=== PATIENT | female | born 1935 | race Caucasian/White ===

== ENCOUNTER 2016-12-31 14:12 | Inpatient (IN) | payer MEDICARE ==
[2016-12-31] VITALS (7 sets, daily range): BP systolic 117–144; BP diastolic 58–89; PULSE 76–89; RESP 16–18; TEMP 98.3–99.5; O2SAT 98–100
[~2016-12-31] VITALS: Ht 157.5 cm; Wt 65.0 kg
[2016-12-31] MEDS ORDERED: TETANUS/DIPHTHERIA TOXOID ADULT 0.5 ML VIAL IM ONE (14:45)
--- NOTE | 2016-12-31 15:05 | PD ---
HPI Chief Complaint: Injury Time Seen by Provider: 14:44 Travel History International Travel<30 days: No Contact w/Intl Traveler<30days: No Traveled to known affect area: No History of Present Illness HPI This is a 81-year-old female with history of dementia,, who presents with left shoulder, humerus, elbow, hip and femur pain after mechanical fall. The patient was apparently walking her dog and tripped over her dog. There is no reported loss of consciousness. There is no neck pain. The patient is a poor historian secondary to her dementia history. There is no chest or abdominal pain. There is no neck pain. PFSH Past Medical History Medical History: Unable to Obtain High Cholesterol: Yes Dementia: Yes Tetanus Vaccination: Unknown Influenza Vaccination: No ?: Not Past Surgical History Hysterectomy: Yes Social History Alcohol Use: No Tobacco Use: No Substance Use: No Allergies-Medications (Allergen,Severity, Reaction): Coded Allergies: No Known Allergies (Unverified , 12/31/16) Reported Meds & Prescriptions Reported Meds & Active Scripts Active Reported Pravastatin 10 Mg Tab 10 Mg PO DAILY Namenda (Memantine) 5 Mg Tab 5 Mg PO BID Review of Systems ROS Limitations: Poor Historian HENT: No: Headaches, Neck Pain Cardiovascular: No: Chest Pain or Discomfort (secondary to dementia.), Palpitations Gastrointestinal: No: Nausea, Vomiting, Abdominal Pain Genitourinary: No: Incontinence Musculoskeletal: Positive: Limited ROM (secondary to pain in the lower extremity of the left leg), Pain (left shoulder, humerus, elbow, hip, femur pain ) Skin: Positive Other (abrasion to the left elbow.) Neurologic: Positive: Other (history of dementia.), No: Syncope, Headache Physical Exam Narrative GENERAL: Elderly [id number] female in no acute respiratory distress. SKIN: Focused skin assessment warm/dry. HEAD: Atraumatic. Normocephalic. EYES: No scleral icterus. No injection or drainage. ENT: No nasal bleeding or discharge. Mucous membranes pink and moist. NECK: Trachea midline. No posterior spinous process tenderness on her cervical spine. She had full range of motion. No pain elicited on ranging of her neck. CARDIOVASCULAR: Regular rate and rhythm. No murmur appreciated. RESPIRATORY: No accessory muscle use. Clear to auscultation. Breath sounds equal bilaterally. GASTROINTESTINAL: Abdomen soft, non-tender, nondistended. MUSCULOSKELETAL: No obvious deformities. Subjective pain to her left shoulder and left humerus. There is an abrasion to her left elbow. There is no obvious deformity. Patient also has tenderness to her left lateral trochanter of her hip. She has no knee pain or tibial pain. She does have pain in her proximal femur. No obvious deformity noted. Right upper and lower extremity are without pain or deformities. NEUROLOGICAL: Awake and confused. No obvious cranial nerve deficits. Motor grossly within normal limits. Normal speech. Data Data Last Documented VS Vital Signs Date Time Temp Pulse Resp B/P (MAP) Pulse Ox O2 Delivery O2 Flow Rate FiO2 12/31/16 17:14 98 Room Air 12/31/16 16:15 76 17 12/31/16 14:22 2.00 12/31/16:17 98.3 Orders Orders Elbow, Limited (Ap&Lat) (12/31/16 14:44) Femur (Ap & Lat/2vws) (12/31/16 14:44) Hip, Uni(Ap&Lat) W Ap Pelvis (12/31/16 14:44) Humerus (Min 2vws) (12/31/16 14:44) Shoulder, Limited(2vws) (12/31/16 14:44) Tetanus/Diphtheria Tox Adult (Tetanus/Di (12/31/16 14:45) Electrocardiogram (12/31/16 14:28) Morphine Inj (Morphine Inj) (12/31/16 16:45) Ondansetron Inj (Zofran Inj) (12/31/16 16:45) Electrocardiogram (12/31/16 16:44) Complete Blood Count With Diff (12/31/16 16:44) Comprehensive Metabolic Panel (12/31/16 16:44) Prothrombin Time / Inr (Pt) (12/31/16 16:44) Act Partial Throm Time (Ptt) (12/31/16 16:44) Chest, Single Ap (12/31/16 16:44) Iv Access Insert/Monitor (12/31/16 16:44) Ecg Monitoring (12/31/16 16:44) Oximetry (12/31/16 16:44) Type And Screen (12/31/16 16:44) Admit To Inpatient (12/31/16 ) Vital Signs (Adult) Q4H (12/31/16 17:28) Activity Oob With Assistance (12/31/16 17:28) Intake + Output RENY.QSHIFT (12/31/16 17:28) Diet Heart Healthy (12/31/16 Dinner) Sodium Chloride 0.9% Flush (Ns Flush) (12/31/16 17:30) Sodium Chloride 0.9% Flush (Ns Flush) (12/31/16 21:00) Acetaminophen (Tylenol) (12/31/16 17:30) Ondansetron Inj (Zofran Inj) (12/31/16 17:30) Basic Metabolic Panel (Bmp) (01/01/17 06:00) Complete Blood Count With Diff (01/01/17 06:00) Resp Oxygen Jaime C Titrat 1-4 L (12/31/16 ) Pt Request For Service (12/31/16 17:28) Ot Request For Service (12/31/16 17:28) Scd Bilateral/Knee High RENY.BID (12/31/16 17:28) Naloxone Inj (Narcan Inj) (12/31/16 17:30) Docusate Sodium-Senna (Katie-Colace) (12/31/16 21:00) Magnesium Hydroxide Liq (Milk Of Magnesi (12/31/16 17:30) Sennosides (Senokot) (12/31/16 17:30) Bisacodyl Supp (Dulcolax Supp) (12/31/16 17:30) Inpatient Certification (12/31/16 ) Scd&Teds Bilateral/Knee High RENY.QSHIFT (12/31/16 17:28) Diet Npo (01/01/17 Breakfast) Consult Orthopedic (12/31/16 ) Admit Order (Ed Use Only) (12/31/16 17:31) Memantine (Namenda) (12/31/16 21:00) Pravastatin (Pravachol) (01/01/17 09:00) [employer] Request For Service (12/31/16 17:33) Labs Laboratory Tests Test 12/31/16 17:21 White Blood Count 10.7 TH/MM3 Red Blood Count 4.07 MIL/MM3 Hemoglobin 12.0 GM/DL Hematocrit 36.4 % Mean Corpuscular Volume 89.4 FL Mean Corpuscular Hemoglobin 29.5 PG Mean Corpuscular Hemoglobin Concent 33.1 % Red Cell Distribution Width 13.3 % Platelet Count 235 TH/MM3 Mean Platelet Volume 9.2 FL Neutrophils (%) (Auto) 49.6 % Lymphocytes (%) (Auto) 40.4 % Monocytes (%) (Auto) 8.2 % Eosinophils (%) (Auto) 1.1 % Basophils (%) (Auto) 0.7 % Neutrophils # (Auto) 5.3 TH/MM3 Lymphocytes # (Auto) 4.3 TH/MM3 Monocytes # (Auto) 0.9 TH/MM3 Eosinophils # (Auto) 0.1 TH/MM3 Basophils # (Auto) 0.1 TH/MM3 CBC Comment DIFF FINAL Differential Comment MDM Medical Decision Making Medical Screen Exam Complete: Yes Emergency Medical Condition: Yes Differential Diagnosis Left hip versus pelvis fracture versus femur fracture versus left shoulder versus left elbow versus left humerus fracture Narrative Course This is a 81-year-old female who presents after mechanical fall with left shoulder and left hip pain. Patient has a left proximal humerus fracture as well as a left femoral neck fracture. The patient has no other obvious injuries. The patient has been discussed with Dr. Nitin Solares, [facility], who will admit the patient to his service. Case was discussed with the circulating nurse in the OR for Dr. Chaudhry who requested admit to medicine and consult to him. The patient was placed in a coaptation splint and Jaime's traction for the left lower extremity. Diagnosis Primary Impression: Closed fracture of left proximal humerus Additional Impressions: Fracture of neck of left femur Abrasion of left elbow mechanical fall History of dementia Admitting Information Admitting Physician Requests: Admit Ruddy Welch MD Dec 31, 2016 15:05
[2016-12-31] MEDS ORDERED: NAME5TAB2 PO (15:41)
[2016-12-31] MEDS ORDERED: PRAV10TA PO (15:41)
--- NOTE | 2016-12-31 16:02 | RADRPT ---
EXAM DATE/TIME: 12/31/2016 15:10 [facility] COMPARISON: No previous studies available for comparison. INDICATIONS : Fall, complains of left shoulder pain. MEDICAL HISTORY : None. SURGICAL HISTORY : None. ENCOUNTER: Initial ACUITY: 1 day PAIN SCORE: 10/10 LOCATION: Left elbow FINDINGS: No definite fractures, or dislocations are identified. No definite lytic or sclerotic lesion is seen . The joint spaces are well maintained. CONCLUSION: Unremarkable study. Emmy Ordoñez MD on December 31, 2016 at 15:59 Board Certified Radiologist. This report was verified electronically.
[2016-12-31] MEDS ORDERED: MORPHINE SULFATE 4 MG/ML INJ IV ONE (16:45)
[2016-12-31] MEDS ORDERED: ONDANSETRON HCL 4 MG/2 ML VIAL IVP ONE (16:45)
--- NOTE | 2016-12-31 16:59 | RADRPT ---
EXAM DATE/TIME: 12/31/2016 15:10 [facility] COMPARISON: No previous studies available for comparison. INDICATIONS : Fall, complains of left hip pain. MEDICAL HISTORY : None. SURGICAL HISTORY : None. ENCOUNTER: Initial ACUITY: 1 day PAIN SCORE: 10/10 LOCATION: Left Hip FINDINGS: There is a complete left femoral neck fracture. CONCLUSION: Left femoral neck fracture. Emmy Ordoñez MD on December 31, 2016 at 16:57 Board Certified Radiologist. This report was verified electronically.
--- NOTE | 2016-12-31 17:00 | RADRPT ---
EXAM DATE/TIME: 12/31/2016 15:12 [facility] COMPARISON: No previous studies available for comparison. INDICATIONS : Fall, complains of left humerus pain. MEDICAL HISTORY : None. SURGICAL HISTORY : None. ENCOUNTER: Initial ACUITY: 1 day PAIN SCORE: 10/10 LOCATION: Left humerus FINDINGS: There is a complete fracture of the proximal humerus underneath the surgical neck and the humeral hea d is rotated. CONCLUSION: Left proximal humeral fracture. Emmy Ordoñez MD on December 31, 2016 at 16:58 Board Certified Radiologist. This report was verified electronically.
--- NOTE | 2016-12-31 17:01 | RADRPT ---
EXAM DATE/TIME: 12/31/2016 15:17 [facility] COMPARISON: No previous studies available for comparison. INDICATIONS : Fall, complains of left shoulder pain. MEDICAL HISTORY : None. SURGICAL HISTORY : None. ENCOUNTER: Initial ACUITY: 1 day PAIN SCORE: 10/10 LOCATION: Left shoulder FINDINGS: There is a complete fracture of the proximal humerus underneath the surgical neck with impaction of t he metaphysis into the humeral head which is rotated. There is no dislocation. CONCLUSION: Left proximal humeral fracture. Emmy Ordoñez MD on December 31, 2016 at 16:59 Board Certified Radiologist. This report was verified electronically.
--- NOTE | 2016-12-31 17:02 | RADRPT ---
EXAM DATE/TIME: 12/31/2016 15:19 [facility] COMPARISON: No previous studies available for comparison. INDICATIONS : Fall, left femur pain. MEDICAL HISTORY : None. SURGICAL HISTORY : None. ENCOUNTER: Initial ACUITY: 1 day PAIN SCORE: 10/10 LOCATION: Left femur FINDINGS: There is a complete femoral neck fracture. CONCLUSION: Femoral neck fracture. Emmy Ordoñez MD on December 31, 2016 at 16:59 Board Certified Radiologist. This report was verified electronically.
--- NOTE | 2016-12-31 17:10 | RADRPT ---
EXAM DATE/TIME: 12/31/2016 16:51 [facility] COMPARISON: No previous studies available for comparison. INDICATIONS : Pre op. MEDICAL HISTORY : None. SURGICAL HISTORY : None. ENCOUNTER: Initial ACUITY: 1 day PAIN SCORE: 0/10 LOCATION: Bilateral chest FINDINGS: There is small focal opacity overlying the left lung base. Lung nodule or small focus of infiltrate i s not excluded. Right lung is grossly clear. No effusion is suspected. Cardiomediastinal contours are satisfactory for technique and projection. CONCLUSION: Small density overlying the left lung base. Followup versus further evaluation with CT chest recommen ded. Marcos Gage MD on December 31, 2016 at 17:07 Board Certified Radiologist. This report was verified electronically.
[2016-12-31] MEDS ORDERED: NALOXONE HCL 0.4 MG/ML AMP IV PRN (17:30)
[2016-12-31] MEDS ORDERED: BISACODYL 10 MG SUPP RECTAL PRN (17:30)
[2016-12-31] MEDS ORDERED: SODIUM CHLORIDE 0.9% FLUSH 10 ML FLUSH IV FLUSH PRN (17:30)
[2016-12-31] MEDS ORDERED: ONDANSETRON HCL 4 MG/2 ML VIAL IVP PRN (17:30)
[2016-12-31] MEDS ORDERED: ACETAMINOPHEN 325 MG TAB PO PRN (17:30)
[2016-12-31 17:33] LABS: AUTOMATED NEUTROPHIL # 5.3 TH/MM3 (1.8-7.7); BASOPHIL # 0.1 TH/MM3 (0-0.2); BASOPHIL % 0.7 % (0.0-2.0); EOSINOPHIL # 0.1 TH/MM3 (0-0.4); EOSINOPHIL % 1.1 % (0.0-4.0); HEMATOCRIT 36.4 % (35.0-46.0); HEMO FLAGS DIFF FINAL; LYMPH % 40.4 % (9.0-44.0); LYMPHOCYTE # 4.3 TH/MM3 (1.0-4.8); MEAN CELL VOLUME 89.4 FL (80.0-100.0); MEAN CORPUSCULAR HEMOGLOBIN 29.5 PG (27.0-34.0); MEAN CORPUSCULAR HGB CONC 33.1 % (32.0-36.0); MONO % 8.2 % (0.0-8.0); NEUT % 49.6 % (16.0-70.0); PLATELET COUNT 235 TH/MM3 (150-450); RED BLOOD COUNT 4.07 MIL/MM3 (4.00-5.30); RED CELL DISTRIBUTION WIDTH 13.3 % (11.6-17.2); WHITE BLOOD COUNT 10.7 TH/MM3 (4.0-11.0)
[2016-12-31 17:40] LABS: APTT (PATIENT) 25.5 SEC (24.3-30.1); PROTHROMBIN TIME - PATIENT 10.5 SEC (9.8-11.6)
--- NOTE | 2016-12-31 18:02 | HHI.HP ---
HPI Service [facility] Primary Care Physician Ang Mesa M.D. Admission Diagnosis left hip fracture, left proximal humerous fracture, pulmonary nodule Diagnoses: (1) Closed fracture of left proximal humerus (2) Fracture of neck of left femur (3) History of dementia Chief Complaint: Fall Travel History International Travel<30 Days: No Contact w/Intl Traveler <30 Da: No Traveled to Known Affected Are: No History of Present Illness Mrs. Cotton is an 81-year-old female patient with a known medical history of dementia and hyperlipidemia who presented to the ED after a fall. Patient seen in the ED with at bedside. She states that patient tripped over her dog this afternoon, fell to the ground and sustained a left femoral neck fracture and a left proximal humeral fracture. Patient denies any loss of consciousness or hitting her head. She is a relatively healthy patient with dementia x 7 years , lives at home with her , able to perform all ADLs per self and before this incident independent in ambulation. Denies any recent fever, chills, cough , headache, shortness of breath, loss of appetite, loss of weight, abdominal pain, nausea, vomiting, diarrhea or dysuria. Review of Systems Musculoskeletal: COMPLAINS OF: Joint pain (left shoulder and hip pain) Except as stated in HPI: all other systems reviewed are Neg Past Family Social History Past Medical History History of dementia x 7 years Hyperlipidemia Past Surgical History Hysterectomy Reported Medications Reported Meds & Active Scripts Active Reported Pravastatin 10 Mg Tab 10 Mg PO DAILY Namenda (Memantine) 5 Mg Tab 5 Mg PO BID Allergies: Coded Allergies: No Known Allergies (Unverified , 12/31/16) Active Ordered Medications Current Medications Medications (Trade) Dose Ordered Sig/Yasmin Route Start Time Stop Time Status Last Admin (NS Flush) 2 ml UNSCH PRN IV FLUSH 12/31/16 17:30 (NS Flush) 2 ml BID IV FLUSH 12/31/16 21:00 (Tylenol) 650 mg Q4H PRN PO 12/31/16 17:30 (Zofran Inj) 4 mg Q6H PRN IVP 12/31/16 17:30 (Narcan Inj) 0.4 mg UNSCH PRN IV 12/31/16 17:30 (Katie-Colace) 1 tab BID PO 12/31/16 21:00 (Milk Of Magnesia Liq) 30 ml Q12H PRN PO 12/31/16 17:30 (Senokot) 17.2 mg Q12H PRN PO 12/31/16 17:30 (Dulcolax Supp) 10 mg DAILY PRN RECTAL 12/31/16 17:30 (Namenda) 5 mg BID PO 12/31/16 21:00 (Pravachol) 10 mg DAILY PO 01/01/17 09:00 Family History Denies any significant family medical history including cardiovascular disease, cancer or lung disease. Social History Denies any previous or current tobacco use. Denies any alcohol abuse. Denies any illicit drug use. for over 64 years. Physical Exam Vital Signs Vital Signs Date Time Temp Pulse Resp B/P (MAP) Pulse Ox O2 Delivery O2 Flow Rate FiO2 12/31/16 17:14 98 Room Air 12/31/16 16:15 76 17 134/75 (94) 98 Room Air 12/31/16 16:07 77 17 123/89 (100) 98 Room Air 12/31/16 14:22 Nasal Cannula 2.00 12/31/16 14:17 98.3 76 16 140/66 (90) 100 Physical Exam GENERAL: This is a well-nourished, well-developed female patient lying in bed with apparent pain to her left shoulder and hip SKIN: No rashes, ecchymoses or lesions. Warm and dry. HEAD: Atraumatic. Normocephalic. Pupils equal round and reactive. Extraocular motions intact. No scleral icterus. No injection or drainage. Nose without bleeding. Airway patent. NECK: Trachea midline. No JVD or lymphadenopathy. Supple, nontender, no meningeal signs. CARDIOVASCULAR: Regular rate and rhythm without murmurs, gallops, or rubs. S1 and S2 present, no S3 or S4. RESPIRATORY: Clear to auscultation. Breath sounds equal bilaterally. No wheezes , rales, or rhonchi. GASTROINTESTINAL: Abdomen soft, non-tender, nondistended. No guarding. Bowel sounds present x 4 q. MUSCULOSKELETAL: Extremities without clubbing, cyanosis, or edema. No joint tenderness, effusion, or edema noted. NEUROLOGICAL: Awake and alert, pleasant with apparent confusion. Cranial nerves II through XII intact. Limited range of motion to left humerus and left hip. Five out of 5 muscle strength in all muscle groups. Normal speech. Denies any paresthesia or numbness to extremities. Laboratory Laboratory Tests Test 12/31/16 17:21 White Blood Count 10.7 Red Blood Count 4.07 Hemoglobin 12.0 Hematocrit 36.4 Mean Corpuscular Volume 89.4 Mean Corpuscular Hemoglobin 29.5 Mean Corpuscular Hemoglobin Concent 33.1 Red Cell Distribution Width 13.3 Platelet Count 235 Mean Platelet Volume 9.2 Neutrophils (%) (Auto) 49.6 Lymphocytes (%) (Auto) 40.4 Monocytes (%) (Auto) 8.2 Eosinophils (%) (Auto) 1.1 Basophils (%) (Auto) 0.7 Neutrophils # (Auto) 5.3 Lymphocytes # (Auto) 4.3 Monocytes # (Auto) 0.9 Eosinophils # (Auto) 0.1 Basophils # (Auto) 0.1 CBC Comment DIFF FINAL Differential Comment Prothrombin Time 10.5 Prothromb Time International Ratio 1.0 Activated Partial Thromboplast Time 25.5 Result Diagram: 12/31/16 1721 Imaging Last Impressions Chest X-Ray 12/31/16 1644 Signed Impressions: Service Date/Time: Saturday, December 31, 2016 16:51 - CONCLUSION: Small density overlying the left lung base. Followup versus further evaluation with CT chest recommended. Marcos Gage MD Shoulder X-Ray 12/31/161443 Signed Impressions: Service Date/Time: Saturday, December 31, 2016 15:17 - CONCLUSION: Left proximal humeral fracture. Emmy Ordoñez MD Humerus X-Ray 12/31/161443 Signed Impressions: Service Date/Time: Saturday, December 31, 2016 15:12 - CONCLUSION: Left proximal humeral fracture. Emmy Ordoñez MD Hip and Pelvis X-Ray 12/31/161443 Signed Impressions: Service Date/Time: Saturday, December 31, 2016 15:10 - CONCLUSION: Left femoral neck fracture. Emmy Ordoñez MD Femur X-Ray 12/31/161443 Signed Impressions: Service Date/Time: Saturday, December 31, 2016 15:19 - CONCLUSION: Femoral neck fracture. Emmy Ordoñez MD Elbow X-Ray 12/31/16 1444 Signed Impressions: Service Date/Time: Saturday, December 31, 2016 15:10 - CONCLUSION: Unremarkable study. MD Nasir Bob VTE Risk Assessment Nasir VTE Risk Assessment: Mod/High Risk (score >= 2) Caprini Risk Assessment Model Point Value = 1 Point Value = 2 Point Value = 3 Point Value = 5 Age 41-60 Minor surgery BMI > 25 kg/m2 Swollen legs Varicose veins or History of unexplained or recurrent spontaneous Oral contraceptives or hormone replacement Sepsis (< 1 month) Serious lung disease, including pneumonia (< 1 month) Abnormal pulmonary function Acute myocardial infarction Congestive heart failure (< 1 month) History of inflammatory bowel disease Medical patient at bed rest Age 61-74 Arthroscopic surgery Major open surgery (> 45 min) Laparoscopic surgery (> 45 min) Malignancy Confined to bed (> 72 hours) Immobilizing plaster cast Central venous access Age >= 75 History of VTE Family history of VTE Factor V Leiden Prothrombin [id number] Lupus anticoagulant Anticardiolipin antibodies Elevated serum homocysteine Heparin-induced thrombocytopenia Other congenital or acquired thrombophilia Stroke (< 1 month) Elective arthroplasty Hip, pelvis, or leg fracture Acute spinal cord injury (< 1 month) Prophylaxis Regimen Total Risk Factor Score Risk Level Prophylaxis Regimen 0-1 Low Early ambulation 2 Moderate Order ONE of the following: *Sequential Compression Device (SCD) *Heparin 5000 units SQ BID 3-4 Higher Order ONE of the following medications: *Heparin 5000 units SQ TID *Enoxaparin/Lovenox 40 mg SQ daily (WT < 150 kg, CrCl > 30 mL/min) *Enoxaparin/Lovenox 30 mg SQ daily (WT < 150 kg, CrCl > 10-29 mL/min) *Enoxaparin/Lovenox 30 mg SQ BID (WT < 150 kg, CrCl > 30 mL/min) AND/OR *Sequential Compression Device (SCD) 5 or more Highest Order ONE of the following medications: *Heparin 5000 units SQ TID (Preferred with Epidurals) *Enoxaparin/Lovenox 40 mg SQ daily (WT < 150 kg, CrCl > 30 mL/min) *Enoxaparin/Lovenox 30 mg SQ daily (WT < 150 kg, CrCl > 10-29 mL/min) *Enoxaparin/Lovenox 30 mg SQ BID (WT < 150 kg, CrCl > 30 mL/min) AND *Sequential Compression Device (SCD) Assessment and Plan Assessment and Plan Mrs. Cotton is an 81-year-old female patient with a known medical history of dementia and hyperlipidemia who presented to the ED after a fall. Patient seen in the ED with at bedside. She states that patient tripped over her dog this afternoon, fell to the ground and sustained a left femoral neck fracture and a left proximal humeral fracture. Left closed proximal humeral fracture Left closed femoral neck fracture - Imaging reviewed showing left proximal humeral fracture and left femoral neck fracture. - Consult placed to orthopedic surgeon, appreciate further recommendations. - [employer] consulted for appropriate immobilization, appreciate input. - Heart healthy diet ordered for dinner tonight. NPO after midnight. - Control pain. Morphine IV given in Ed. PRN pain medication available per pain scale. - CBC reviewed, unremarkable. Awaiting BMP, follow. Hyperlipidemia, chronic: Continue home Pravastatin. Dementia, chronic: Continue home Namenda. DVT Prophylaxis: SCDs/TEDS. Will hold chemical prophylaxis until seen by ortho, await recommendations and further plan. Attending statement: Patient seen and examined. S/P fall at home with pain in left shoulder and left hip. She has fracture of left proximal humerus and left femoral neck. Pain is adequately controlled at this time. Patient is alert. Left upper extremity in a sling. Orthopedic surgery consult is pending. Will likely need surgical repair. CXR shows lung nodule. Check chest CT when acute issue is stable. Physician Certification 2 Midnight Certification Type: Admission for Inpatient Services Order for Inpatient Services The services are ordered in accordance with Medicare regulations or non- Medicare payer requirements, as applicable. In the case of services not specified as inpatient-only, they are appropriately provided as inpatient services in accordance with the 2-midnight benchmark. Estimated LOS (days): 2 days is the estimated time the patient will need to remain in the hospital, assuming treatment plan goals are met and no additional complications. Post-Hospital Plan: Not yet determined Juanita Lepe Dec 31, 2016 18:02 Nitin Solares MD Dec 31, 2016 19:00
[2016-12-31 18:18] LABS: ALT (GPT) 13 U/L (10-53); ANION GAP 8 MEQ/L (5-15); AST (GOT) 10 U/L (15-37); BICARBONATE 24.8 MEQ/L (21.0-32.0); BLOOD UREA NITROGEN 11 MG/DL (7-18); CHLORIDE 109 MEQ/L (98-107); GLOMERULAR FILTRATION RATE 68 ML/MIN (>89); POTASSIUM 4.1 MEQ/L (3.5-5.1); SODIUM (NA) 142 MEQ/L (136-145)
[2016-12-31 18:20] LABS: ALKALINE PHOSPHATASE 58 U/L (45-117); TOTAL BILIRUBIN ADULT 0.5 MG/DL (0.2-1.0)
[2016-12-31] MEDS: MORPHINE SULFATE 4 MG/ML INJ IV PUSH PRN (22:29)
[2016-12-31] MEDS: MEMANTINE HCL 5 MG TAB PO SCH (22:34)
[2016-12-31] MEDS: DOCUSATE SODIUM 50 MG/SENNA 8.6 MG TAB PO SCH (22:37)
[2016-12-31] MEDS: SODIUM CHLORIDE 0.9% FLUSH 10 ML FLUSH IV FLUSH SCH (22:37)
[2017-01-01 00:36] VITALS: BP 128/66; PULSE 99; RESP 17; TEMP 99.2; O2SAT 96
[2017-01-01] MEDS: MORPHINE SULFATE 4 MG/ML INJ IV PUSH PRN (04:07)
[2017-01-01 04:22] VITALS: BP 146/64; PULSE 105; RESP 17; TEMP 99; O2SAT 98
[2017-01-01] MEDS ORDERED: GENTAMICIN SULFATE 80 MG/2 ML VIAL ONE ×3 (06:08→12:37)
[2017-01-01] MEDS ORDERED: FAMOTIDINE 20 MG/2 ML VIAL ONE (07:33)
[2017-01-01] MEDS ORDERED: MIDAZOLAM HCL 2 MG/2 ML VIAL ONE (07:33)
[2017-01-01 08:23] VITALS: BP 141/70; PULSE 104; RESP 18; TEMP 98.1; O2SAT 96
[2017-01-01] MEDS: MEMANTINE HCL 5 MG TAB PO SCH ×2 (08:50→19:52)
[2017-01-01] MEDS: PRAVASTATIN SOD 10 MG TAB PO SCH (08:50)
[2017-01-01] MEDS: DOCUSATE SODIUM 50 MG/SENNA 8.6 MG TAB PO SCH ×2 (08:50→19:52)
[2017-01-01] MEDS: SODIUM CHLORIDE 0.9% FLUSH 10 ML FLUSH IV FLUSH SCH ×2 (09:00→19:52)
[2017-01-01] MEDS ORDERED: VANCOMYCIN INJ 1,250 MG in SODIUM CHLOR 0.9% 250 ML INJ 250 ML IV SCH (09:15)
[2017-01-01] MEDS ORDERED: SODIUM CHLORIDE 0.9% IV SCH ×3 (09:15)
[2017-01-01] MEDS ORDERED: CLINDAMYCIN IV SCH (09:15)
[2017-01-01] MEDS ORDERED: CEFAZOLIN INJ 3,000 MG in SODIUM CHLORIDE 0.9% INJ 100 ML IV SCH (09:15)
[2017-01-01] MEDS ORDERED: VANCOMYCIN INJ 1,750 MG in SODIUM CHLORID 0.9% 500 ML INJ 500 ML IV SCH (09:15)
[2017-01-01] MEDS ORDERED: ceFAZolin 2 GM PREMIX 50 ML IV SCH (09:15)
[2017-01-01] MEDS ORDERED: GENTAMICIN IV SCH (09:15)
[2017-01-01] MEDS ORDERED: CHLORHEXIDINE GLUCONATE 4% SOLN 120 ML BTL TOPICAL SCH (09:15)
[2017-01-01] MEDS ORDERED: VANCOMYCIN INJ 1,000 MG in SODIUM CHLOR 0.9% 250 ML INJ 250 ML IV SCH (09:15)
[2017-01-01] MEDS ORDERED: VANCOMYCIN INJ 1,500 MG in SODIUM CHLORID 0.9% 500 ML INJ 500 ML IV SCH (09:15)
[2017-01-01] MEDS ORDERED: CEFUROXIME IV SCH (09:15)
[2017-01-01] MEDS ORDERED: TRANEXAMIC ACID INJ 1,000 MG/10 ML AMP ONE (09:39)
[2017-01-01] MEDS ORDERED: ceFAZolin INJ 1,000 MG VIAL ONE (09:47)
[2017-01-01] MEDS ORDERED: VANCOMYCIN HCL 1000 MG VIAL ONE (10:08)
[2017-01-01 10:17] LABS: AUTOMATED NEUTROPHIL # 10.6 TH/MM3 (1.8-7.7); BASOPHIL % 0.3 % (0.0-2.0); HEMATOCRIT 38.8 % (35.0-46.0); HEMO FLAGS DIFF FINAL; LYMPH % 13.4 % (9.0-44.0); LYMPHOCYTE # 1.9 TH/MM3 (1.0-4.8); MEAN CELL VOLUME 90.7 FL (80.0-100.0); MEAN CORPUSCULAR HEMOGLOBIN 29.7 PG (27.0-34.0); MEAN CORPUSCULAR HGB CONC 32.7 % (32.0-36.0); MONO % 9.8 % (0.0-8.0); NEUT % 76.5 % (16.0-70.0); PLATELET COUNT 197 TH/MM3 (150-450); RED BLOOD COUNT 4.28 MIL/MM3 (4.00-5.30); RED CELL DISTRIBUTION WIDTH 13.5 % (11.6-17.2); WHITE BLOOD COUNT 13.9 TH/MM3 (4.0-11.0)
[2017-01-01 10:39] LABS: BICARBONATE 24.4 MEQ/L (21.0-32.0); POTASSIUM 3.6 MEQ/L (3.5-5.1)
--- NOTE | 2017-01-01 11:12 | MB ---
cc: RADHA FLORES M.D. DATE OF CONSULTATION: 01/01/2017. REASON FOR CONSULTATION: Requested to evaluate left hip and left proximal humerus fracture. HISTORY OF PRESENT ILLNESS: Rosemarie Cotton is an 81-year-old female who sustained a fall at her home when she tripped over her dog. She sustained an injury to her left shoulder and her left hip. She was brought to [facility] where a proximal humerus surgical neck fracture and a displaced left hip femoral neck fracture were identified. The patient was admitted to the medical service with consultation placed with the undersigned. PAST MEDICAL HISTORY: The patient's past medical history is significant for dementia. She is pleasant and talkative but is disoriented to her situation. SOCIAL HISTORY: She is and her has spent the night. LABORATORY STUDIES: She has increased elevated lipids. PAST SURGICAL HISTORY: Hysterectomy. MEDICATIONS: Her regular medications are: 1. Pravastatin. 2. Memantine. ALLERGIES: NO KNOWN DRUG ALLERGIES. PHYSICAL EXAMINATION: GENERAL: The patient is alert and appropriate and answers questions but is disoriented. She has tenderness to palpation about her left shoulder where a moderate deformity is noted. She is slow to move her hands but she has sensation intact and she has some slight motion. She has tenderness to palpation about the left hip. The skin is intact about the hip and the shoulder. No effusion on the knee. Her calf is soft. Distal pulses are 2+. Distal sensorimotor neurological examination is intact. IMAGING STUDIES: X-rays were reviewed. The left shoulder shows an angulated proximal humeral neck two part fracture. The left hip shows displaced left femoral neck fracture. MEDICAL DECISION-MAKING: Her condition was discussed the options of treatment were discussed. The recommendation is surgical repair in both locations for the hip. It is left hip hemiarthroplasty for fracture and for the shoulder it is left shoulder open reduction internal fixation. The surgical technique has been reviewed. The risks, benefits, and alternatives to treatment have been thoroughly discussed. All questions answered. Informed consent was obtained. MD ERASTO Donahue/SABAS /9:13 AM /11:02 AM
[2017-01-01] MEDS ORDERED: LACTATED RINGER'S 1000 ML INJ 1,000 ML IV ONE (11:23)
[2017-01-01] MEDS ORDERED: ONDANSETRON HCL 4 MG/2 ML VIAL IV PUSH ONE (11:23)
[2017-01-01] MEDS ORDERED: PROPOFOL 200 MG/20 ML AMP IV ONE (11:23)
[2017-01-01] MEDS ORDERED: NEOSTIGMINE 3 MG/3 ML SYR IV ONE (11:23)
--- NOTE | 2017-01-01 13:23 | OTSOAPIP ---
TIME SESSION COMPLETED: AM TREATMENT TIME: 0 MINS. CHART REVIEWED. RECEIVED ORDERS FOR OT CONSULT. PT IS PENDING SURGERY AND UNAVAILABLE. WILL FOLLOW NEXT DAY. Therapist: SHANAE STODDARD OT/Renato Signature on file
--- NOTE | 2017-01-01 13:46 | EKG ---
Date Performed: 12/31/2016 Time Performed: 14:28:25 PTAGE: 81 years EKG: Sinus rhythm NORMAL ECG NO PREVIOUS TRACING DOCTOR: Pepe Tierney Interpretating Date/Time 01/01/2017 13:45:28
[2017-01-01] MEDS ORDERED: TRANEXAMIC ACID INJ 1,000 MG in SODIUM CHLORIDE 0.9% INJ 100 ML IV SCH (14:00)
[2017-01-01] MEDS ORDERED: DO NOT ADM ANY ANTICOAGULANT DRUGS PRN (14:04)
[2017-01-01] MEDS: D5-1/2 NS + KCL 20 MEQ INJ 1,000 ML IV SCH (14:11)
[2017-01-01] MEDS ORDERED: diphenhydrAMINE HCL 25 MG CAP PO PRN (14:15)
[2017-01-01] MEDS ORDERED: ACETAMINOPHEN/HYDROcodone 325 MG/5 MG TAB PO PRN (14:15)
[2017-01-01] MEDS ORDERED: LACTULOSE SYRUP 20 GM/30 ML CUP PO PRN (14:15)
[2017-01-01] MEDS ORDERED: Post-op Orders (for Pharmacy) MISC XX ONE (14:15)
[2017-01-01] MEDS ORDERED: *MEPERIDINE 25 MG INJ VIAL PERIprocedural Use ONLY ONE (14:18)
--- NOTE | 2017-01-01 14:47 | RADRPT ---
EXAM DATE/TIME: 01/01/2017 13:36 [facility] COMPARISON: No previous studies available for comparison. INDICATIONS : ORIF lt shoulder. MEDICAL HISTORY : None. SURGICAL HISTORY : None. ENCOUNTER: Subsequent ACUITY: 1 day PAIN SCORE: Non-responsive. LOCATION: Left Shoulder FINDINGS: 4 intraoperative views of the left shoulder. Lateral internal fixation plate and multiple transfixing screws are in place in the proximal humerus. Alignment within normal limits. CONCLUSION: Surgical hardware in the proximal humerus. Josué West MD on January 01, 2017 at 14:43 Board Certified Radiologist. This report was verified electronically.
--- NOTE | 2017-01-01 15:16 | HHI.PR ---
Subjective Remarks Follow-up dementia, hip and humerus fractures. Patient seen following surgery. She is sleepy/sedated. No specific complaints at this time. Objective Vitals Vital Signs Date Time Temp Pulse Resp B/P (MAP) Pulse Ox O2 Delivery O2 Flow Rate FiO2 01/01/17 14:30 97 15 134/65 (88) 98 Nasal Cannula 2 01/01/17 14:15 101 15 134/70 (91) 98 Nasal Cannula 2 01/01/17 14:04 98.6 105 15 140/71 (94) 94 Nasal Cannula 2 01/01/17 10:05 99.1 101 16 131/73 (92) 94 01/01/17 08:23 98.1 104 18 141/70 (93) 96 01/01/17 04:22 99.0 105 17 146/64 (91) 98 01/01/17 00:36 99.2 99 17 128/66 (86) 96 12/31/16 20:40 99.5 88 17 144/63 (90) 98 12/31/16 19:43 12/31/16 19:26 89 18 117/78 (91) 98 Room Air 12/31/16 18:09 79 17 131/58 (82) 100 Room Air 12/31/16 17:14 98 Room Air 12/31/16 16:15 76 17 134/75 (94) 98 Room Air 12/31/16 16:07 77 17 123/89 (100) 98 Room Air I/O 12/31/16 12/31/16 12/31/16 01/01/17 01/01/17 01/01/17 07:00 15:00 23:00 07:00 15:00 23:00 Intake Total 120 ml 0 ml Output Total 575 ml Balance 120 ml 0 ml -575 ml Intake Oral 120 ml 0 ml Output Urine Total 575 ml # Voids 0 0 # Bowel Movements 0 0 Result Diagram: 01/01/17 0938 01/01/17 0938 Imaging Last Impressions Shoulder X-Ray 01/01/17 0000 Signed Impressions: Service Date/Time: Sunday, January 01, 2017 13:36 - CONCLUSION: Surgical hardware in the proximal humerus. Josué West MD Chest X-Ray 12/31/16 1644 Signed Impressions: Service Date/Time: Saturday, December 31, 2016 16:51 - CONCLUSION: Small density overlying the left lung base. Followup versus further evaluation with CT chest recommended. Marcos Gage MD Humerus X-Ray 12/31/16 1444 Signed Impressions: Service Date/Time: Saturday, December 31, 2016 15:12 - CONCLUSION: Left proximal humeral fracture. Emmy Ordoñez MD Hip and Pelvis X-Ray 12/31/16 1444 Signed Impressions: Service Date/Time: Saturday, December 31, 2016 15:10 - CONCLUSION: Left femoral neck fracture. Emmy Ordoñez MD Femur X-Ray 12/31/16 1444 Signed Impressions: Service Date/Time: Saturday, December 31, 2016 15:19 - CONCLUSION: Femoral neck fracture. Emmy Ordoñez MD Elbow X-Ray 12/31/16 1444 Signed Impressions: Service Date/Time: Saturday, December 31, 2016 15:10 - CONCLUSION: Unremarkable study. Emmy Ordoñez MD Objective Remarks General: Elderly female in no acute distress. Heart: Regular rate and rhythm. No murmur. Lungs: Clear to auscultation bilaterally. No wheezes, rales, or rhonchi. Breathing is nonlabored. Abdomen: Soft, nontender, nondistended. Extremities: No lower extremity edema. Psych: Sleepy/sedated. Procedures 01/01/17 left bipolar hip replacement, ORIF left shoulder fracture Urinary Catheter: Yes Assessment to: Continue Larkin insert reason: Surgical/Invasive Proced Vascular Central Line Catheter: No A/P Problem List: (1) Closed fracture of left proximal humerus ICD Code: S42.202A - Unspecified fracture of upper end of left humerus, initial encounter for closed fracture Status: Acute (2) Fracture of neck of left femur ICD Code: S72.002A - Fracture of unspecified part of neck of left femur, initial encounter for closed fracture Status: Acute (3) History of dementia ICD Code: Z86.59 - Personal history of other mental and behavioral disorders Status: Acute Assessment and Plan 1. Left proximal humeral fracture, left femoral neck fracture: Status post surgical repair. Management per orthopedic surgery. Continue pain control. 2. Hyperlipidemia: Continue statin. 3. Dementia: Continue Namenda. 4. Lung nodule: Chest CT when patient is more stable. 5. DVT prophylaxis: SCDs, Grace Brooke. Nitin Solares MD Jan 01, 2017 15:16
--- NOTE | 2017-01-01 15:22 | RADRPT ---
EXAM DATE/TIME: 01/01/2017 14:27 [facility] COMPARISON: No previous studies available for comparison. INDICATIONS : Post op Left hip MEDICAL HISTORY : None. SURGICAL HISTORY : None. ENCOUNTER: Initial ACUITY: 1 day PAIN SCORE: Non-responsive. LOCATION: Left upper extremity FINDINGS: Single AP view left hip. Hemiarthroplasty noted. Alignment within normal limits. No evidence of fract ure. CONCLUSION: Postoperative appearance left hip hemiarthroplasty. Josué West MD on January 01, 2017 at 15:20 Board Certified Radiologist. This report was verified electronically.
[2017-01-01 16:00] VITALS: BP 151/68; PULSE 100; RESP 19; TEMP 99; O2SAT 100
[2017-01-01] MEDS: ACETAMINOPHEN/HYDROcodone 325 MG/5 MG TAB PO PRN (17:09)
[2017-01-01] MEDS: MAGNESIUM HYDROXIDE SUSP 30 ML CUP PO PRN (19:52)
[2017-01-01] MEDS: SENNOSIDES 8.6 MG TAB PO PRN (19:52)
--- NOTE | 2017-01-01 22:00 | MP ---
cc: RADHA FLORES M.D. DATE OF SURGERY 01/01/2017 PREOPERATIVE DIAGNOSIS Left hip displaced femoral neck fracture and left shoulder displaced surgical neck fracture. POSTOPERATIVE DIAGNOSIS Left hip displaced femoral neck fracture and left shoulder displaced surgical neck fracture. PROCEDURE 1. Left hip open treatment with bipolar hemiarthroplasty using DePuy Corail stem. 2. Left shoulder open reduction, internal fixation of surgical neck fracture using Synthes specialty locking plate. ANESTHESIA General. SURGEON Radha Flores MD SPANISH TRANSLATOR SURGEON SIERRA Love ESTIMATED BLOOD LOSS 150 cc left hip. 150 cc left shoulder. COMPLICATIONS None known. INDICATION Rosemarie Cotton is an 81-year-old female who sustained a fall and sustained a fracture of her left shoulder and her left hip. She is indicated for surgical repair. Risks, benefits thoroughly discussed and a detailed informed consent was obtained. PROCEDURE IN DETAIL The patient brought in the operating room. She was placed under general anesthetic. She is turned to lateral decubitus position, left hip up. The left hip was prepped and draped usual sterile fashion. IV antibiotics were given. Time-out was completed. A posterior incision made, taken through subcutaneous tissue. Hemostasis obtained with the use of electrocautery down the fascial layer which was split in line with the incision and meticulous hemostasis as we proceeded, posterior approach identified the piriformis and tagged this and released it from the proximal femur and then released the capsule and expose the fracture site. We used the oscillating saw to complete our cut and then removed the fragments, removed the femoral head which we measured and sized and then proceeded with use of a rectangular osteotome and then a canal finder and the sequential broaching. Once we had secured rotational fit then this was the final component and we trialed and we had excellent range of motion and stability and based on the x-rays it appears that we are recreating leg length. ____ the final components selected. The femoral component placed with approximately 20 degrees anteversion and the head, neck assembly was impacted in place. The hip was reduced, again stability excellent, range of motion excellent, irrigated out with copious amounts irrigation, anatomic repair of the capsule. Proceeded to repair the piriformis and proceeded to close in layers with absorbable sutures, subcuticular on the skin. Steri-Strips applied. Sterile dressing applied. The patient was turned supine and then we removed the beanbag and we proceeded to drape and prep the left shoulder in the usual sterile fashion and then proceeded with a repeat time-out. An anterior approach to the shoulder deltopectoral interval. We mobilized the cephalic vein with the deltoid and then retracted deltoid, had exposure of the fracture site, placed tag stitches in the rotator cuff above to gain control of the fracture site above. Reduced the bone and confirmed good alignment and then chose the short Synthes locking plate and aligned that, placed a provisional screw with good fixation and alignment in all planes. Then proceeded with placement of our locking screws with excellent fixation. All screws completed that required and then we took our final x-rays, four different views in the AP lateral and 45 degrees oblique views. We had very good hemostasis, irrigated out with copious amounts irrigation, proceeded to close in layers with absorbable sutures, subcuticular on the skin. Steri-Strips applied. Sterile dressing applied. The patient was awoken and returned to the recovery room in stable condition. MD ERASTO Donahue/JOHN /8:23 PM /9:41 PM
[2017-01-01 23:15] VITALS: BP_SYST 141; BP_SYST 62; BP_DIAS 77; PULSE 103; PULSE 109; RESP 18; TEMP 96.4; TEMP 98.8; O2SAT 95; O2SAT 96
[2017-01-02] MEDS: D5-1/2 NS + KCL 20 MEQ INJ 1,000 ML IV SCH ×3 (00:11→20:11)
[2017-01-02 04:15] VITALS: BP 131/77; PULSE 100; RESP 17; TEMP 100.5; O2SAT 97
[2017-01-02 08:00] VITALS: BP 133/69; PULSE 98; RESP 19; TEMP 95.7; O2SAT 96
[2017-01-02 08:07] LABS: AUTOMATED NEUTROPHIL # 12.5 TH/MM3 (1.8-7.7); BASOPHIL # 0.1 TH/MM3 (0-0.2); BASOPHIL % 0.4 % (0.0-2.0); HEMATOCRIT 32.8 % (35.0-46.0); HEMO FLAGS DIFF FINAL; LYMPH % 12.7 % (9.0-44.0); LYMPHOCYTE # 2.1 TH/MM3 (1.0-4.8); MEAN CORPUSCULAR HEMOGLOBIN 29.2 PG (27.0-34.0); MEAN CORPUSCULAR HGB CONC 32.8 % (32.0-36.0); MONO % 10.5 % (0.0-8.0); NEUT % 76.4 % (16.0-70.0); PLATELET COUNT 170 TH/MM3 (150-450); RED BLOOD COUNT 3.69 MIL/MM3 (4.00-5.30); RED CELL DISTRIBUTION WIDTH 13.2 % (11.6-17.2); WHITE BLOOD COUNT 16.4 TH/MM3 (4.0-11.0)
[2017-01-02] MEDS: DOCUSATE SODIUM 50 MG/SENNA 8.6 MG TAB PO SCH ×2 (08:08→20:26)
[2017-01-02] MEDS: PRAVASTATIN SOD 10 MG TAB PO SCH (08:08)
[2017-01-02] MEDS: MEMANTINE HCL 5 MG TAB PO SCH ×2 (08:08→20:25)
[2017-01-02] MEDS: ACETAMINOPHEN/HYDROcodone 325 MG/5 MG TAB PO PRN ×3 (08:09→20:26)
[2017-01-02] MEDS: SODIUM CHLORIDE 0.9% FLUSH 10 ML FLUSH IV FLUSH SCH ×2 (08:14→21:00)
[2017-01-02 08:36] LABS: BICARBONATE 23.2 MEQ/L (21.0-32.0); POTASSIUM 3.7 MEQ/L (3.5-5.1)
--- NOTE | 2017-01-02 09:45 | HHI.PR ---
Subjective Remarks Follow up leukocytosis. Patient states that she feels better today. Her is at bedside and states that she has been less confused today. She reports that her pain is well controlled. No chest pain, dyspnea, cough. Objective Vitals Vital Signs Date Time Temp Pulse Resp B/P (MAP) Pulse Ox O2 Delivery O2 Flow Rate FiO2 01/02/17 08:00 95.7 98 19 133/69 (90) 96 01/02/17 04:15 100.5 100 17 131/77 (95) 97 01/01/17 23:15 98.8 109 18 62/ 95 01/01/17 23:15 96.4 103 18 141/77 (98) 96 01/01/17 16:00 99.0 100 19 151/68 (95) 100 01/01/17 14:30 97 15 134/65 (88) 98 Nasal Cannula 2 01/01/17 14:15 101 15 134/70 (91) 98 Nasal Cannula 2 01/01/17 14:04 98.6 105 15 140/71 (94) 94 Nasal Cannula 2 01/01/17 10:05 99.1 101 16 131/73 (92) 94 I/O 01/01/17 01/01/17 01/01/17 01/02/17 01/02/17 01/02/17 07:00 15:00 23:00 07:00 15:00 23:00 Intake Total 0 ml 2070 ml 120 ml Output Total 575 ml 1100 ml 300 ml Balance 0 ml -575 ml 970 ml -180 ml Intake Oral 0 ml 120 ml 120 ml IV Total 1950 ml Output Urine Total 575 ml 950 ml 300 ml Estimated Blood Loss 150 ml # Voids 0 # Bowel Movements 0 0 0 Result Diagram: 01/02/17 0743 01/02/17 0743 Imaging Last Impressions Shoulder X-Ray 01/01/17 0000 Signed Impressions: Service Date/Time: Sunday, January 01, 2017 13:36 - CONCLUSION: Surgical hardware in the proximal humerus. Joséu West MD Hip X-Ray 01/01/17 0000 Signed Impressions: Service Date/Time: Sunday, January 01, 2017 14:27 - CONCLUSION: Postoperative appearance left hip hemiarthroplasty. Josué West MD Chest X-Ray 12/31/16 1644 Signed Impressions: Service Date/Time: Saturday, December 31, 2016 16:51 - CONCLUSION: Small density overlying the left lung base. Followup versus further evaluation with CT chest recommended. Marcos Gage MD Humerus X-Ray 12/31/16 1444 Signed Impressions: Service Date/Time: Saturday, December 31, 2016 15:12 - CONCLUSION: Left proximal humeral fracture. Emmy Ordoñez MD Hip and Pelvis X-Ray 12/31/16 1444 Signed Impressions: Service Date/Time: Saturday, December 31, 2016 15:10 - CONCLUSION: Left femoral neck fracture. Emmy Ordoñez MD Femur X-Ray 12/31/16 1444 Signed Impressions: Service Date/Time: Saturday, December 31, 2016 15:19 - CONCLUSION: Femoral neck fracture. Emmy Ordoñez MD Elbow X-Ray 12/31/16 1444 Signed Impressions: Service Date/Time: Saturday, December 31, 2016 15:10 - CONCLUSION: Unremarkable study. Emmy Ordoñez MD Objective Remarks General: Elderly female in no acute distress. Sitting up in a chair. Heart: Regular rate and rhythm. No murmur. Lungs: Clear to auscultation bilaterally. No wheezes, rales, or rhonchi. Breathing is nonlabored. Abdomen: Soft, nontender, nondistended. Extremities: No lower extremity edema. Left upper extremity in a sling. Psych: Alert, somewhat confused. Procedures 01/01/17 left bipolar hip replacement, ORIF left shoulder fracture Urinary Catheter: Yes Assessment to: Continue Larkin insert reason: Surgical/Invasive Proced Vascular Central Line Catheter: No A/P Problem List: (1) Closed fracture of left proximal humerus ICD Code: S42.202A - Unspecified fracture of upper end of left humerus, initial encounter for closed fracture Status: Acute (2) Fracture of neck of left femur ICD Code: S72.002A - Fracture of unspecified part of neck of left femur, initial encounter for closed fracture Status: Acute (3) History of dementia ICD Code: Z86.59 - Personal history of other mental and behavioral disorders Status: Acute Assessment and Plan 1. Left proximal humeral fracture, left femoral neck fracture: Status post surgical repair. Management per orthopedic surgery. Continue pain control, physical therapy. 2. Hyperlipidemia: Continue statin. 3. Dementia: Continue Namenda. 4. Lung nodule: We'll evaluate further with CT of the chest. 5. Leukocytosis, low-grade fever: No obvious infection at this time. Continue to monitor. Continue incentive spirometry. 6. DVT prophylaxis: DELBERT Tapia Lovenox. Nitin Solares MD Jan 02, 2017 09:45
[2017-01-02] MEDS: ENOXAPARIN SODIUM 30 MG/0.3 ML SYRINGE SQ SCH (11:28)
[2017-01-02] MEDS ORDERED: IOHEXOL 350 MG/ML 10 ML VIAL (for RAD DIAG) IVCONTRAST ONE (12:08)
--- NOTE | 2017-01-02 13:10 | RADRPT ---
EXAM DATE/TIME: 01/02/2017 11:55 [facility] COMPARISON: CHEST SINGLE AP, December 31, 2016, 16:51. INDICATIONS : Abnormal chest xray. IV CONTRAST: 65 cc Omnipaque 350 (iohexol) IV RADIATION DOSE: 8.97 CTDIvol (mGy) MEDICAL HISTORY : Dementia. SURGICAL HISTORY : Hysterectomy. ENCOUNTER: Initial ACUITY: 1 day PAIN SCALE: 0/10 LOCATION: chest TECHNIQUE: Volumetric scanning of the chest was performed. Using automated exposure control and adjustment of t he mA and/or kV according to patient size, radiation dose was kept as low as reasonably achievable to obtain optimal diagnostic quality images. DICOM format image data is available electronically for review and comparison. Follow-up recommendations for detected pulmonary nodules are based at a minimum on nodule size and pa tient risk factors according to Fleischner Society Guidelines. FINDINGS: There is respiratory motion artifact. LUNGS: There is no consolidation or pneumothorax. No concerning pulmonary nodule is visualized. PLEURA: There is no pleural thickening or pleural effusion. MEDIASTINUM: The heart and great vessels demonstrate no acute abnormality. There is no mediastinal or hilar lymph adenopathy. There is mild atherosclerotic disease. AXILLAE: There is edema in the left axilla. No lymphadenopathy. SKELETAL: There are degenerative changes of the thoracic spine. Soft tissue air is present adjacent to the left shoulder and near the left lateral pectoralis major muscle. There is partially visualized hardware i n the left proximal humerus. MISCELLANEOUS: The visualized upper abdominal organs demonstrate no acute abnormality. CONCLUSION: 1. No acute pulmonary abnormality is identified. 2. Soft tissue air adjacent to the left shoulder and left pectoralis muscle. Suggest correlation for soft tissue injury in this area. There is hardware in the left proximal humerus. If this has been rec ently placed it would likely explain the soft tissue air. Marcos Penaloza MD on January 02, 2017 at 13:02 Board Certified Radiologist. This report was verified electronically.
--- NOTE | 2017-01-02 15:16 | PD.ORT.PN ---
Subjective Subjective Remarks Patient comfortable. Pain controlled. Spouse at bedside. Objective Vitals Vital Signs Date Time Temp Pulse Resp B/P (MAP) Pulse Ox O2 Delivery O2 Flow Rate FiO2 01/02/17 08:00 95.7 98 19 133/69 (90) 96 01/02/17 04:15 100.5 100 17 131/77 (95) 97 01/01/17 23:15 98.8 109 18 62/ 95 01/01/17 23:15 96.4 103 18 141/77 (98) 96 01/01/17 16:00 99.0 100 19 151/68 (95) 100 I/O 01/01/17 01/01/17 01/01/17 01/02/17 01/02/17 01/02/17 06:59 14:59 22:59 06:59 14:59 22:59 Intake Total 0 ml 2070 ml 120 ml Output Total 575 ml 1100 ml 300 ml Balance 0 ml -575 ml 970 ml -180 ml Intake Oral 0 ml 120 ml 120 ml IV Total 1950 ml Output Urine Total 575 ml 950 ml 300 ml Estimated Blood Loss 150 ml # Voids 0 # Bowel Movements 0 0 0 Result Diagram: 01/02/17 0743 01/02/17 0743 Imaging Last [address] 01/02/17 0000 Signed Impressions: Service Date/Time: Monday, January 02, 2017 11:55 - CONCLUSION: 1. No acute pulmonary abnormality is identified. 2. Soft tissue air adjacent to the left shoulder and left pectoralis muscle. Suggest correlation for soft tissue injury in this area. There is hardware in the left proximal humerus. If this has been recently placed it would likely explain the soft tissue air. Marcos Penaloza MD Procedures 1. Left hip open treatment with bipolar hemiarthroplasty using DePuy Corail stem. 2. Left shoulder open reduction, internal fixation of surgical neck fracture using Synthes specialty locking plate. Objective Remarks Left humerus ambar warp and sling in place NVI Left hip dressing C/D/I calves soft negative homans NVI Assessment & Plan Assessment and Plan POD #1 s/p ORIF left humerus and left hip hemiarthroplasty Pain management - [place] DVT prophylaxis -Lovenox Physical therapy - LUE: non WB, AAROM, may use a platform walker LLE: WBAT, AAROM, hip precautions D/C planning: anticipating SNF Monitor Mor Cristobal Jan 02, 2017 15:16
[2017-01-02 16:00] VITALS: BP 142/67; PULSE 102; RESP 19; TEMP 98.7; O2SAT 98
[2017-01-02 20:00] VITALS: BP 142/65; PULSE 113; RESP 19; TEMP 100; O2SAT 95
[2017-01-02] MEDS: SENNOSIDES 8.6 MG TAB PO PRN (20:25)
[2017-01-02] MEDS: MAGNESIUM HYDROXIDE SUSP 30 ML CUP PO PRN (20:26)
[2017-01-03] VITALS (7 sets, daily range): BP systolic 114–151; BP diastolic 70–79; PULSE 101–117; RESP 16–18; TEMP 96.2–99.2; O2SAT 93–96
[2017-01-03] MEDS: D5-1/2 NS + KCL 20 MEQ INJ 1,000 ML IV SCH ×2 (01:14→16:11)
[2017-01-03] MEDS: ENOXAPARIN SODIUM 30 MG/0.3 ML SYRINGE SQ SCH ×2 (02:24→12:22)
[2017-01-03 06:10] LABS: AUTOMATED NEUTROPHIL # 12.7 TH/MM3 (1.8-7.7); BASOPHIL % 0.2 % (0.0-2.0); HEMATOCRIT 33.3 % (35.0-46.0); HEMO FLAGS DIFF FINAL; LYMPH % 10.2 % (9.0-44.0); LYMPHOCYTE # 1.6 TH/MM3 (1.0-4.8); MEAN CELL VOLUME 88.4 FL (80.0-100.0); MEAN CORPUSCULAR HEMOGLOBIN 29.2 PG (27.0-34.0); MEAN CORPUSCULAR HGB CONC 33.1 % (32.0-36.0); MONO % 7.6 % (0.0-8.0); PLATELET COUNT 183 TH/MM3 (150-450); RED BLOOD COUNT 3.77 MIL/MM3 (4.00-5.30); RED CELL DISTRIBUTION WIDTH 13.2 % (11.6-17.2); WHITE BLOOD COUNT 15.5 TH/MM3 (4.0-11.0)
[2017-01-03 06:20] LABS: BICARBONATE 25.1 MEQ/L (21.0-32.0)
[2017-01-03 07:04] LABS: POTASSIUM 3.6 MEQ/L (3.5-5.1)
--- NOTE | 2017-01-03 08:16 | PD.ORT.PN ---
Subjective Subjective Remarks POD 3 s/p left hip hemiarthroplasty POD 3 s/p ORIF left proximal humerus doing well. reports working with therapy. states recent diarrhea. Objective Vitals Vital Signs Date Time Temp Pulse Resp B/P (MAP) Pulse Ox O2 Delivery O2 Flow Rate FiO2 01/03/17 04:05 99.0 111 18 117/74 (88) 94 01/03/17 00:00 99.2 117 18 144/73 (96) 93 01/02/17 20:00 100.0 113 19 142/65 (90) 95 01/02/17 16:00 98.7 102 19 142/67 (92) 98 I/O 01/02/17 01/02/17 01/02/17 01/03/17 01/03/17 01/03/17 07:00 15:00 23:00 07:00 15:00 23:00 Intake Total 120 ml 720 ml 120 ml 60 ml Output Total 300 ml 475 ml 350 ml 450 ml Balance -180 ml 245 ml -230 ml -390 ml Intake Oral 120 ml 720 ml 120 ml 60 ml Output Urine Total 300 ml 475 ml 350 ml 450 ml # Bowel Movements 0 0 0 1 Result Diagram: 01/03/17 0541 01/03/17 0541 Imaging Last [address] 01/02/17 0000 Signed Impressions: Service Date/Time: Monday, January 02, 2017 11:55 - CONCLUSION: 1. No acute pulmonary abnormality is identified. 2. Soft tissue air adjacent to the left shoulder and left pectoralis muscle. Suggest correlation for soft tissue injury in this area. There is hardware in the left proximal humerus. If this has been recently placed it would likely explain the soft tissue air. Marcos Penaloza MD Procedures 1. Left hip open treatment with bipolar hemiarthroplasty using DePuy Corail stem. 2. Left shoulder open reduction, internal fixation of surgical neck fracture using Synthes specialty locking plate. Objective Remarks LUE: dressings claen and dry. intact. NVI. sling not present LLE: dressings clean and dry. intact. Neg becky. NVI. knee brace not in place Assessment & Plan Assessment and Plan POD #3 s/p ORIF left humerus and left hip hemiarthroplasty Pain management - [place] DVT prophylaxis -Lovenox Physical therapy - LUE: non WB, AAROM, may use a platform walker LLE: WBAT, AAROM, posterior hip precautions. D/C planning: anticipating SNF Monitor Camilo Samuel Jan 03, 2017 08:16
[2017-01-03] MEDS: SODIUM CHLORIDE 0.9% FLUSH 10 ML FLUSH IV FLUSH SCH (09:00)
[2017-01-03] MEDS: DOCUSATE SODIUM 50 MG/SENNA 8.6 MG TAB PO SCH ×2 (09:00→21:00)
[2017-01-03] MEDS: PRAVASTATIN SOD 10 MG TAB PO SCH (09:18)
[2017-01-03] MEDS: MEMANTINE HCL 5 MG TAB PO SCH ×2 (09:18→21:24)
[2017-01-03] MEDS: ACETAMINOPHEN/HYDROcodone 325 MG/5 MG TAB PO PRN (09:19)
--- NOTE | 2017-01-03 12:34 | HHI.PR ---
Subjective Remarks Follow up leukocytosis, low-grade fever. Per her , the patient has been a little more confused today. She denies pain currently. Denies dyspnea. Has been having diarrhea. Objective Vitals Vital Signs Date Time Temp Pulse Resp B/P (MAP) Pulse Ox O2 Delivery O2 Flow Rate FiO2 01/03/17 12:20 97.3 113 17 114/70 (85) 96 01/03/17 09:17 96.2 101 18 151/79 (103) 96 01/03/17 04:05 99.0 111 18 117/74 (88) 94 01/03/17 00:00 99.2 117 18 144/73 (96) 93 01/02/17 20:00 100.0 113 19 142/65 (90) 95 01/02/17 16:00 98.7 102 19 142/67 (92) 98 I/O 01/02/17 01/02/17 01/02/17 01/03/17 01/03/17 01/03/17 07:00 15:00 23:00 07:00 15:00 23:00 Intake Total 120 ml 720 ml 120 ml 60 ml Output Total 300 ml 475 ml 350 ml 450 ml Balance -180 ml 245 ml -230 ml -390 ml Intake Oral 120 ml 720 ml 120 ml 60 ml Output Urine Total 300 ml 475 ml 350 ml 450 ml # Bowel Movements 0 0 0 1 Result Diagram: 01/03/17 0541 01/03/17 0541 Imaging Last Impressions Chest CT 01/02/17 0000 Signed Impressions: Service Date/Time: Monday, January 02, 2017 11:55 - CONCLUSION: 1. No acute pulmonary abnormality is identified. 2. Soft tissue air adjacent to the left shoulder and left pectoralis muscle. Suggest correlation for soft tissue injury in this area. There is hardware in the left proximal humerus. If this has been recently placed it would likely explain the soft tissue air. Marcos Penaloza MD Shoulder X-Ray 01/01/17 0000 Signed Impressions: Service Date/Time: Sunday, January 01, 2017 13:36 - CONCLUSION: Surgical hardware in the proximal humerus. Josué West MD Hip X-Ray 01/01/17 0000 Signed Impressions: Service Date/Time: Sunday, January 01, 2017 14:27 - CONCLUSION: Postoperative appearance left hip hemiarthroplasty. Josué West MD Chest X-Ray 12/31/16 1644 Signed Impressions: Service Date/Time: Saturday, December 31, 2016 16:51 - CONCLUSION: Small density overlying the left lung base. Followup versus further evaluation with CT chest recommended. Marcos Gage MD Humerus X-Ray 12/31/16 1444 Signed Impressions: Service Date/Time: Saturday, December 31, 2016 15:12 - CONCLUSION: Left proximal humeral fracture. Emmy Ordoñez MD Hip and Pelvis X-Ray 12/31/16 1444 Signed Impressions: Service Date/Time: Saturday, December 31, 2016 15:10 - CONCLUSION: Left femoral neck fracture. Emmy Ordoñez MD Femur X-Ray 12/31/16 1444 Signed Impressions: Service Date/Time: Saturday, December 31, 2016 15:19 - CONCLUSION: Femoral neck fracture. Emmy Ordoñez MD Elbow X-Ray 12/31/16 1444 Signed Impressions: Service Date/Time: Saturday, December 31, 2016 15:10 - CONCLUSION: Unremarkable study. Emmy Ordoñez MD Objective Remarks General: Elderly female in no acute distress. Sitting up in a chair. Heart: Regular rate and rhythm. No murmur. Lungs: Clear to auscultation bilaterally. No wheezes, rales, or rhonchi. Breathing is nonlabored. Abdomen: Soft, nontender, nondistended. Extremities: No lower extremity edema. Left upper extremity in a sling. Psych: Alert, somewhat confused. Procedures 01/01/17 left bipolar hip replacement, ORIF left shoulder fracture Urinary Catheter: No Vascular Central Line Catheter: No A/P Problem List: (1) Closed fracture of left proximal humerus ICD Code: S42.202A - Unspecified fracture of upper end of left humerus, initial encounter for closed fracture Status: Acute (2) Fracture of neck of left femur ICD Code: S72.002A - Fracture of unspecified part of neck of left femur, initial encounter for closed fracture Status: Acute (3) History of dementia ICD Code: Z86.59 - Personal history of other mental and behavioral disorders Status: Acute Assessment and Plan 1. Left proximal humeral fracture, left femoral neck fracture: Status post surgical repair. Management per orthopedic surgery. Continue pain control, physical therapy. 2. Hyperlipidemia: Continue statin. 3. Dementia: Continue Namenda. 4. Lung nodule: We'll evaluate further with CT of the chest. 5. Leukocytosis, low-grade fever: No obvious infection at this time. Continue to monitor. Continue incentive spirometry. WBCs trending down. 6. DVT prophylaxis: [place], Grace Brooke. 7. Diarrhea: Check stool for c difficile. Nitin Solares MD Jan 03, 2017 12:34
[2017-01-03] MEDS: LACTOBACILLUS ACIDOPHILUS TAB PO SCH ×2 (13:00→17:22)
[2017-01-03] MEDS: ACETAMINOPHEN 325 MG TAB PO PRN (21:25)
[2017-01-04 00:20] VITALS: BP 136/63; PULSE 107; RESP 16; TEMP 97; O2SAT 95
[2017-01-04] MEDS: ENOXAPARIN SODIUM 30 MG/0.3 ML SYRINGE SQ SCH ×2 (00:29→13:55)
[2017-01-04] MEDS: SODIUM CHLORIDE 0.9% FLUSH 10 ML FLUSH IV FLUSH SCH ×2 (00:29→09:00)
[2017-01-04] MEDS: D5-1/2 NS + KCL 20 MEQ INJ 1,000 ML IV SCH ×2 (02:11→12:11)
[2017-01-04] MEDS: ACETAMINOPHEN 325 MG TAB PO PRN (05:27)
[2017-01-04 08:00] VITALS: BP 138/71; PULSE 99; RESP 16; TEMP 98.5; O2SAT 93
[2017-01-04] MEDS: DOCUSATE SODIUM 50 MG/SENNA 8.6 MG TAB PO SCH (09:00)
[2017-01-04 09:03] LABS: BASOPHIL % 0.1 % (0.0-2.0); EOSINOPHIL % 0.1 % (0.0-4.0); HEMATOCRIT 30.9 % (35.0-46.0); HEMO FLAGS DIFF FINAL; LYMPHOCYTE # 1.8 TH/MM3 (1.0-4.8); MEAN CELL VOLUME 88.9 FL (80.0-100.0); MEAN CORPUSCULAR HEMOGLOBIN 29.7 PG (27.0-34.0); MEAN CORPUSCULAR HGB CONC 33.4 % (32.0-36.0); MONO % 9.2 % (0.0-8.0); NEUT % 75.6 % (16.0-70.0); PLATELET COUNT 210 TH/MM3 (150-450); RED BLOOD COUNT 3.47 MIL/MM3 (4.00-5.30); RED CELL DISTRIBUTION WIDTH 13.2 % (11.6-17.2)
[2017-01-04 09:20] LABS: BICARBONATE 24.8 MEQ/L (21.0-32.0); POTASSIUM 3.8 MEQ/L (3.5-5.1)
[2017-01-04] MEDS: LACTOBACILLUS ACIDOPHILUS TAB PO SCH ×2 (09:21→13:54)
[2017-01-04] MEDS: MEMANTINE HCL 5 MG TAB PO SCH (09:21)
[2017-01-04] MEDS: PRAVASTATIN SOD 10 MG TAB PO SCH (09:21)
--- NOTE | 2017-01-04 10:04 | HHI.PR ---
Subjective Remarks Follow up leukocytosis, low-grade fever. The patient feels much better today. Her states that she has been less confused. He believes that she is ready for discharge. She denies pain at this time. No shortness of breath. Diarrhea has resolved. Objective Vitals Vital Signs Date Time Temp Pulse Resp B/P (MAP) Pulse Ox O2 Delivery O2 Flow Rate FiO2 01/04/17 08:00 98.5 99 16 138/71 (93) 93 01/04/17 00:20 97.0 107 16 136/63 (87) 95 01/03/17 20:10 96.9 103 16 149/70 (96) 94 01/03/17 17:30 95 21 01/03/17 16:00 98.6 108 18 138/75 (96) 95 01/03/17 12:20 97.3 113 17 114/70 (85) 96 I/O 01/03/17 01/03/17 01/03/17 01/04/17 01/04/17 01/04/17 07:00 15:00 23:00 07:00 15:00 23:00 Intake Total 60 ml 360 ml 120 ml 120 ml Output Total 450 ml Balance -390 ml 360 ml 120 ml 120 ml Intake Oral 60 ml 360 ml 120 ml 120 ml Output Urine Total 450 ml # Voids 3 0 0 # Bowel Movements 1 3 0 0 Result Diagram: 01/04/17 0830 01/04/17 0830 Imaging Last Impressions Chest CT 01/02/17 0000 Signed Impressions: Service Date/Time: Monday, January 02, 2017 11:55 - CONCLUSION: 1. No acute pulmonary abnormality is identified. 2. Soft tissue air adjacent to the left shoulder and left pectoralis muscle. Suggest correlation for soft tissue injury in this area. There is hardware in the left proximal humerus. If this has been recently placed it would likely explain the soft tissue air. Marcos Penaloza MD Shoulder X-Ray 01/01/17 0000 Signed Impressions: Service Date/Time: Sunday, January 01, 2017 13:36 - CONCLUSION: Surgical hardware in the proximal humerus. Josué West MD Hip X-Ray 01/01/17 0000 Signed Impressions: Service Date/Time: Sunday, January 01, 2017 14:27 - CONCLUSION: Postoperative appearance left hip hemiarthroplasty. Josué West MD Chest X-Ray 12/31/16 1644 Signed Impressions: Service Date/Time: Saturday, December 31, 2016 16:51 - CONCLUSION: Small density overlying the left lung base. Followup versus further evaluation with CT chest recommended. Marcos aGge MD Humerus X-Ray 12/31/16 1444 Signed Impressions: Service Date/Time: Saturday, December 31, 2016 15:12 - CONCLUSION: Left proximal humeral fracture. Emmy Ordoñez MD Hip and Pelvis X-Ray 12/31/16 1444 Signed Impressions: Service Date/Time: Saturday, December 31, 2016 15:10 - CONCLUSION: Left femoral neck fracture. Emmy Ordoñez MD Femur X-Ray 12/31/16 1444 Signed Impressions: Service Date/Time: Saturday, December 31, 2016 15:19 - CONCLUSION: Femoral neck fracture. Emmy Ordoñez MD Elbow X-Ray 12/31/16 1444 Signed Impressions: Service Date/Time: Saturday, December 31, 2016 15:10 - CONCLUSION: Unremarkable study. Emmy Ordoñez MD Objective Remarks General: Elderly female in no acute distress. Heart: Regular rate and rhythm. No murmur. Lungs: Clear to auscultation bilaterally. No wheezes, rales, or rhonchi. Breathing is nonlabored. Abdomen: Soft, nontender, nondistended. Extremities: No lower extremity edema. Left upper extremity in a sling. Psych: Alert, somewhat confused. Procedures 01/01/17 left bipolar hip replacement, ORIF left shoulder fracture Urinary Catheter: No Vascular Central Line Catheter: No A/P Problem List: (1) Closed fracture of left proximal humerus ICD Code: S42.202A - Unspecified fracture of upper end of left humerus, initial encounter for closed fracture Status: Acute (2) Fracture of neck of left femur ICD Code: S72.002A - Fracture of unspecified part of neck of left femur, initial encounter for closed fracture Status: Acute (3) History of dementia ICD Code: Z86.59 - Personal history of other mental and behavioral disorders Status: Acute Assessment and Plan 1. Left proximal humeral fracture, left femoral neck fracture: Status post surgical repair. Management per orthopedic surgery. Continue pain control, physical therapy. 2. Hyperlipidemia: Continue statin. 3. Dementia: Continue Namenda. 4. Lung nodule: We'll evaluate further with CT of the chest. 5. Leukocytosis, low-grade fever: No obvious infection at this time. Continue to monitor. Continue incentive spirometry. WBCs trending down. 6. DVT prophylaxis: SCDs, DELBERT nicholas, Lovenox. 7. Diarrhea: Resolved. No stool sample able to be obtained for C. difficile testing. 8. Tachycardia: Heart rate remains elevated, but somewhat better today. Patient is asymptomatic. Discharge Planning Plan for discharge to SNF when arrangements can be made. Nitin Solares MD Jan 04, 2017 10:04
[2017-01-04] MEDS ORDERED: ENOX30P SQ (10:13)
[2017-01-04] MEDS ORDERED: HYDR-3516 PO (10:13)
[2017-01-04] MEDS ORDERED: LACT PO (10:13)
--- NOTE | 2017-01-04 10:13 | HHI.DCPOC ---
Discharge Care Plan Diagnosis: (1) Closed fracture of left proximal humerus (2) Fracture of neck of left femur (3) History of dementia Goals to Promote Your Health * To prevent worsening of your condition and complications * To maintain your health at the optimal level Directions to Meet Your Goals Take your medications as prescribed Follow your dietary instruction Follow activity as directed Keep your appointments as scheduled Take your immunizations and boosters as scheduled If your symptoms worsen call your PCP, if no PCP go to Urgent Care Center or Emergency Room Smoking is Dangerous to Your Health. Avoid second hand smoke Call the 24-hour hour crisis hotline for domestic abuse at Nitin Solares MD Jan 04, 2017 10:13
--- NOTE | 2017-01-04 10:40 | PD.ORT.PN ---
Subjective Subjective Remarks patient comfortable Objective Vitals Vital Signs Date Time Temp Pulse Resp B/P (MAP) Pulse Ox O2 Delivery O2 Flow Rate FiO2 01/04/17 08:00 98.5 99 16 138/71 (93) 93 01/04/17 00:20 97.0 107 16 136/63 (87) 95 01/03/17 20:10 96.9 103 16 149/70 (96) 94 01/03/17 17:30 95 21 01/03/17 16:00 98.6 108 18 138/75 (96) 95 01/03/17 12:20 97.3 113 17 114/70 (85) 96 I/O 01/03/17 01/03/17 01/03/17 01/04/17 01/04/17 01/04/17 07:00 15:00 23:00 07:00 15:00 23:00 Intake Total 60 ml 360 ml 120 ml 120 ml Output Total 450 ml Balance -390 ml 360 ml 120 ml 120 ml Intake Oral 60 ml 360 ml 120 ml 120 ml Output Urine Total 450 ml # Voids 3 0 0 # Bowel Movements 1 3 0 0 Result Diagram: 01/04/1730 01/04/17 0830 Procedures 1. Left hip open treatment with bipolar hemiarthroplasty using DePuy Corail stem. 2. Left shoulder open reduction, internal fixation of surgical neck fracture using Synthes specialty locking plate. Objective Remarks LUE: dressings clean and dry. intact. NVI. sling not present LLE: dressings clean and dry. intact. Neg becky. NVI. knee brace not in place Assessment & Plan Ortho Post Op Day #: 3 Problem List: Assessment and Plan POD #3 s/p ORIF left humerus and left hip hemiarthroplasty Pain management - Hardin DVT prophylaxis -Lovenox Physical therapy - LUE: non WB, AAROM, may use a platform walker LLE: WBAT, AAROM, posterior hip precautions. D/C planning: anticipating SNF today Monitor Jun Chaudhry MD Jan 04, 2017 10:40
[2017-01-04 12:02] VITALS: BP 129/77; PULSE 102; RESP 17; TEMP 98.6; O2SAT 96
[2017-01-04 12:19] VITALS: O2SAT 96
[2017-01-04 15:03] LABS: BLOOD, URINE SMALL (NEG); GLUCOSE,URINE NEG (NEG); KETONE, URINE TRACE mg/dL (NEG); NITRITE,URINE NEG (NEG); PH, URINE 5.5 (5.0-8.5); URINE COLOR YELLOW (YELLW/STRAW)
[2017-01-04 15:06] LABS: COMMENT (UR) CATH-CULT NOT IND; CULTURE IF INDICATED CATH CULTURE NOT IND
--- NOTE | 2017-01-27 15:15 | HHI.DS ---
Discharge Summary Admission Date Dec 31, 2016 at 17:33 Discharge Date: Jan 04, 2017 Admitting Diagnosis left hip fracture, left proximal humerous fracture, pulmonary nodule (1) Closed fracture of left proximal humerus ICD Code: S42.202A - Unspecified fracture of upper end of left humerus, initial encounter for closed fracture Status: Acute (2) Fracture of neck of left femur ICD Code: S72.002A - Fracture of unspecified part of neck of left femur, initial encounter for closed fracture Status: Acute (3) History of dementia ICD Code: Z86.59 - Personal history of other mental and behavioral disorders Status: Acute Procedures 01/01/17 left bipolar hip replacement, ORIF left shoulder fracture Brief History - From Admission Mrs. Cotton is an 81-year-old female patient with a known medical history of dementia and hyperlipidemia who presented to the ED after a fall. Patient seen in the ED with at bedside. She states that patient tripped over her dog this afternoon, fell to the ground and sustained a left femoral neck fracture and a left proximal humeral fracture. Patient denies any loss of consciousness or hitting her head. She is a relatively healthy patient with dementia x 7 years , lives at home with her , able to perform all ADLs per self and before this incident independent in ambulation. Denies any recent fever, chills, cough , headache, shortness of breath, loss of appetite, loss of weight, abdominal pain, nausea, vomiting, diarrhea or dysuria. Imaging Last Impressions Chest CT 01/02/17 0000 Signed Impressions: Service Date/Time: Monday, January 02, 2017 11:55 - CONCLUSION: 1. No acute pulmonary abnormality is identified. 2. Soft tissue air adjacent to the left shoulder and left pectoralis muscle. Suggest correlation for soft tissue injury in this area. There is hardware in the left proximal humerus. If this has been recently placed it would likely explain the soft tissue air. Marcos Penaloza MD Shoulder X-Ray 01/01/17 0000 Signed Impressions: Service Date/Time: Sunday, January 01, 2017 13:36 - CONCLUSION: Surgical hardware in the proximal humerus. Josué West MD Hip X-Ray 01/01/17 0000 Signed Impressions: Service Date/Time: Sunday, January 01, 2017 14:27 - CONCLUSION: Postoperative appearance left hip hemiarthroplasty. Josué West MD Chest X-Ray 12/31/16 1644 Signed Impressions: Service Date/Time: Saturday, December 31, 2016 16:51 - CONCLUSION: Small density overlying the left lung base. Followup versus further evaluation with CT chest recommended. Marcos Gage MD Humerus X-Ray 12/31/16 1444 Signed Impressions: Service Date/Time: Saturday, December 31, 2016 15:12 - CONCLUSION: Left proximal humeral fracture. Emmy Ordoñez MD Hip and Pelvis X-Ray 12/31/16 1444 Signed Impressions: Service Date/Time: Saturday, December 31, 2016 15:10 - CONCLUSION: Left femoral neck fracture. Emmy Ordoñez MD Femur X-Ray 12/31/16 1444 Signed Impressions: Service Date/Time: Saturday, December 31, 2016 15:19 - CONCLUSION: Femoral neck fracture. Emmy Ordoñez MD Elbow X-Ray 12/31/16 1444 Signed Impressions: Service Date/Time: Saturday, December 31, 2016 15:10 - CONCLUSION: Unremarkable study. Emmy Ordoñez MD PE at Discharge General: Elderly female in no acute distress. Heart: Regular rate and rhythm. No murmur. Lungs: Clear to auscultation bilaterally. No wheezes, rales, or rhonchi. Breathing is nonlabored. Abdomen: Soft, nontender, nondistended. Extremities: No lower extremity edema. Left upper extremity in a sling. Psych: Alert, somewhat confused. Hospital Course The patient was admitted for management of left proximal humerus fracture and left femoral neck fracture. Orthopedic surgery was consulted. The patient had ORIF of the left shoulder fracture and left bipolar hip replacement done on . Routine postoperative care was continued. She developed leukocytosis and low -grade fever. The fever resolved and leukocytosis improved. Lung nodule was noted on chest x-ray. Further evaluation with chest CT showed no evidence of lung nodule. She was cleared for discharge by orthopedic surgery. Arrangements were made for discharge to SNF. Pt Condition on Discharge: Stable Discharge Disposition: Discharge to SNF Discharge Time: > 30 minutes Discharge Instructions DIET: Follow Instructions for: As Tolerated, No Restrictions Activities you can perform: See Additionl Instruction Other Activity Instructions: Nonweightbearing left upper extremity. Bearing as tolerated left lower extremity. Follow up Referrals: Orthopedics - 1 Week with Jun Chaudhry MD PCP Follow-up - 1 Week with Ang Mesa M.d. New Medications: Enoxaparin Inj (Lovenox Inj) 30 Mg/0.3 Ml Syr 30 MG SQ Q12H for Blood Clot Prevention, #20 INJECTION 0 Refills Hydrocodone-Acetaminophen (Hydrocodone-Acetaminophen) 5-325 mg Tab 1 TAB PO Q4H PRN for PAIN 3- 5 ON SCALE, #12 TAB 0 Refills Lactobacillus Acidophilus (Acidophilus/l-Sporogenes) 35 Million Cell-25 Million Cell Tab 1 TAB PO TID for Probiotic, #60 TAB 0 Refills Continued Medications: Memantine (Namenda) 5 Mg Tab 5 MG PO BID for Alzheimer Disease, #60 TAB 0 Refills Pravastatin (Pravastatin) 10 Mg Tab 10 MG PO DAILY for Cholesterol Management, #30 TAB 0 Refills Nitin Solares MD Jan 27, 2017 15:15
== END 2017-01-04 15:49 | DRG 470 ==
LOC: NEPC 14:12 → NEDA 17:33 → N06A 19:45
PROVIDERS: ADMIT Family Medicine; ATTEND Family Medicine
PROC: 0SRS0JZ Replacement of Left Hip Joint, Femoral Surface with Synthetic Substitute, Open Approach (ICD-10-PCS; principal; 2017-01-01 10:38)
PROC: 0PSD04Z Reposition Left Humeral Head with Internal Fixation Device, Open Approach (ICD-10-PCS; 2017-01-01 10:38)
DX: S72.002A Fracture of unspecified part of neck of left femur, initial encounter for closed fracture (principal); F03.90 Unspecified dementia, unspecified severity, without behavioral disturbance, psychotic disturbance, mood disturbance, and anxiety; R50.9 Fever, unspecified; S42.222A 2-part displaced fracture of surgical neck of left humerus, initial encounter for closed fracture; D72.829 Elevated white blood cell count, unspecified; E78.5 Hyperlipidemia, unspecified; S50.312A Abrasion of left elbow, initial encounter; R19.7 Diarrhea, unspecified; R91.8 Other nonspecific abnormal finding of lung field; R00.0 Tachycardia, unspecified; W01.0XXA Fall on same level from slipping, tripping and stumbling without subsequent striking against object, initial encounter; Y93.K1 Activity, walking an animal
CPT/HCPCS: 29105; 71010; 71260; 73030; 73060; 73070; 73501; 73502; 73552; 76000; 80048; 80053; 81001; 85025; 85610; 85730; 86850; 86900; 86901; 90471; 90714; 93005; 94150; 96374; 96375; C1713; C1776; J0690; J1580; J1650; J2175; J2250; J2270; J2405; J2710; J3010; J3370; J7120; L1830; Q9967